=== PATIENT | male | born 1950 | race Caucasian/White ===

== ENCOUNTER → 2018-02-09 11:54 | Outpatient (CLI) | payer MEDICARE, OTHER, SELFPAY ==
--- NOTE | 2018-02-09 11:57 | DI.RAD.S_ITS ---
PROCEDURE: XR LUMBAR SPINE MIN 4V INDICATIONS: SCIATICA ASSOCIATED WITH DISORDER OF LUMBAR SPINE TECHNIQUE: 5 views of the lumbar spine were acquired. COMPARISON: None. FINDINGS: Bones: 5 nonrib-bearing vertebrae are present. There is normal bony alignment. No vertebral body compression fractures. No suspicious bony lesions. There is mild to moderate degenerative disc disease at L2-3 and L3-4, and L5-S1. No subluxation is associated. Facet osteoarthritis is most pronounced at L4-5 and especially L5-S1 where significant spinal or foraminal stenosis would be expected. Soft tissues: Overlying bowel gas pattern is normal. No suspicious soft tissue calcifications. Oblique images: No pars defects. IMPRESSION: No trauma found, no subluxation is present. Degenerative disc disease is most pronounced combining with facet osteoarthritis from L3 inferiorly and especially at L5-S1 where significant spinal or foraminal stenosis would be expected. Dictated by: Juarez Dempsey M.D. on 02/09/2018 at 12:32 Approved by: Juarez Dempsey M.D. on 02/09/2018 at 12:33
== END ==
PROVIDERS: PCP Family Medicine; Visit Provider Family Medicine
DX: M51.16 Intervertebral disc disorders with radiculopathy, lumbar region (principal); M47.26 Other spondylosis with radiculopathy, lumbar region; M53.86 Other specified dorsopathies, lumbar region
CPT/HCPCS: 72110

== ENCOUNTER → 2018-02-26 11:52 | Outpatient (CLI) | payer MEDICARE, OTHER, SELFPAY ==
[2018-02-26 13:01] LABS: Alanine Aminotransferase 25 IU/L (21-72); Albumin 4.2 g/dL (3.5-5.0); Albumin Globulin Ratio 1.4 (1.0-2.8); Alkaline Phosphatase 65 U/L (38-126); Aspartate Aminotransferase 23 IU/L (17-59); BUN Creatinine Ratio 31.1 (6-22); Bilirubin Total 0.6 mg/dL (0.2-1.3); Blood Urea Nitrogen 28 mg/dL (9-20); Calcium 9.9 mg/dL (8.4-10.2); Carbon Dioxide 27 mmol/L (22-32); Chloride 103 mmol/L (98-107); Estimated Glomerular Filt Rate > 60.0 mL/min (>60); Glucose 82 mg/dL (80-110); HEMOLYSIS < 15 (0-50); Potassium 4.9 mmol/L (3.4-5.1); Sodium 142 mmol/L (137-145); Total Protein 7.2 g/dL (6.3-8.2)
--- NOTE | 2018-02-26 13:12 | DI.CT.S_ITS ---
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 TECHNIQUE: After the administration of oral and intravenous contrast, 5 mm thick sections acquired from the diaphragms to the symphysis. 5 mm thick coronal and sagittal reformats were performed. For radiation dose reduction, the following was used: automated exposure control, adjustment of mA and/or kV according to patient size. COMPARISON: Outside Facility, , CT THORAX/ABDOMEN/PELVIS WITH CONTRAST, 01/19/2018, 10:28. FINDINGS: Image quality: Excellent. ABDOMEN: Lung bases: Lung bases are clear. Heart size is normal. Small hiatal hernia is again noted. Solid organs: Liver is normal in size. 1.8 cm lesion within the left hepatic dome demonstrates minimal peripheral contrast puddling, consistent with previously characterized benign hemangioma. Gallbladder wall thickness is normal. Biliary system is non-dilated. Pancreas enhances normally. Spleen is normal in size and enhancement. 1.3 cm posterior right adrenal exophytic nodule is unchanged. Kidneys are normal in size and enhancement, without hydronephrosis. Peritoneum and bowel: Stomach, small bowel, and colon loops are normal in caliber and wall thickness. The appendix appears normal. No free fluid or air. Nodes and vessels: No retroperitoneal or mesenteric adenopathy. Aorta and inferior vena cava are normal in caliber. Inferior right renal accessory artery is incidentally noted. Miscellaneous: No ventral hernias. PELVIS: Genitourinary: Bladder wall thickness is normal. Prostate gland is normal in overall size. Miscellaneous: No inguinal hernias or adenopathy. Bones: No suspicious bony lesions. No vertebral body compression fractures. IMPRESSION: 1. No new imaging findings to suggest rectal carcinoid recurrence or distant metastases. 2. Superior left hepatic lobe benign hemangioma again noted. 3. Small retrocardiac hiatal hernia. 4. 1.3 cm indeterminate posterior right adrenal exophytic nodule as before. If no remote outside institution chest or abdomen CTs are available to confirm one-year temporal stability, consider further characterization with adrenal protocol pre- and post contrast abdominal CT, or adrenal protocol noncontrast abdominal MRI. Dictated by: Jose R Holcomb M.D. on 02/26/2018 at 14:02 Approved by: Jose R Holcomb M.D. on 02/26/2018 at 14:34
[2018-02-26 13:21] LABS: Free T3, Triiodothyronine Free 3.77 pg/mL (2.77-5.27); Free T4, Direct Thyroxine 1.14 ng/dL (0.78-2.19)
[2018-02-26 13:34] LABS: Thyroid Stimulating Hormone 1.02 uIU/mL (0.47-4.68)
[2018-02-27 13:36] LABS: Rubeola Measles IgG < 25.00 AU/mL (< 25.00)
== END ==
PROVIDERS: PCP Family Medicine; Visit Provider Family Medicine
DX: C20 Malignant neoplasm of rectum (principal); D18.09 Hemangioma of other sites; K44.9 Diaphragmatic hernia without obstruction or gangrene; E27.8 Other specified disorders of adrenal gland
CPT/HCPCS: 36415; 74177; 80053; 84439; 84443; 84481; 86765; Q9967

== ENCOUNTER → 2018-06-01 16:00 | Outpatient (CLI) | payer MEDICARE, OTHER, SELFPAY ==
--- NOTE | 2018-06-01 16:02 | DI.US.S_ITS ---
PROCEDURE: US THYROID INDICATIONS: thyroid nodule TECHNIQUE: Real-time scanning was performed of the thyroid gland, with image documentation. COMPARISON: None. FINDINGS: Right: Thyroid lobe measures 5.7 x 1.6 x 2.0 cm, and is homogeneous in echotexture. Left: Thyroid lobe measures 7.1 x 1.7 x 2.3 cm, and is homogenous in echotexture. Isthmus: 4.0 mm thick. Nodule number: 1 Location: Right inferior Size: 0.7 0.7 0.9 cm. Composition: Solid Echogenicity: Hypoechoic Shape: wider than tall. Margins: Smooth Echogenic foci: None Total points: 4 ACR TI-RADS category: Moderately suspicious Nodule number: 2 Location: Left mid Size: 0.8 x 0.8 x 0.9 cm. Composition: Predominantly cystic Echogenicity: Hypoechoic Shape: wider than tall. Margins: Smooth Echogenic foci: None Total points: 2 ACR TI-RADS category: No suspicious Nodule number: 3 Location: Left inferior Size: 4.0 x 4.1 x 3.7 cm. Composition: Solid Echogenicity: Hypoechoic Shape: wider than tall. Margins: Smooth Echogenic foci: Macrocalcifications Total points: 5 ACR TI-RADS category: Moderately suspicious IMPRESSION: Moderately suspicious for 4.1 cm left thyroid nodule. Fine needle aspiration recommended. Continued followup of the additional 2 lung nodules as below. ACR TI-RADS definitions and recommendations: TI-RADS 1 (benign): 0 points. FNA not needed. TI-RADS 2 (not suspicious): 2 points. FNA not needed. TI-RADS 3 (mildly suspicious): 3 points. * FNA if 2.5 cm or larger, follow up if 1.5 cm or larger (at 1, 3, and 5 years). TI-RADS 4 (moderately suspicious): 4-6 points. * FNA if 1.5 cm or larger, follow up if 1 cm or larger (at 1, 2, 3, and 5 years). TI-RADS 5 (highly suspicious): 7 points or more. * FNA if 1 cm or larger, follow up if 0.5 cm or larger (every year for 5 years). Dictated by: Ross ZAMUDIO Interpreted: Juarez Dempsey MD on 06/01/2018 at 16:34 Approved by: Juarez Dempsey M.D. on 06/01/2018 at 16:54
== END ==
PROVIDERS: PCP Family Medicine; Visit Provider Family Medicine
DX: E04.2 Nontoxic multinodular goiter (principal)
CPT/HCPCS: 76536

== ENCOUNTER → 2018-06-22 15:27 | Outpatient (CLI) | payer MEDICARE, OTHER, SELFPAY | DX: Z23 Encounter for immunization (principal) | CPT/HCPCS: 90471; 90662 ==

== ENCOUNTER → 2019-05-26 12:14 | Outpatient (CLI) | payer MEDICARE, OTHER, SELFPAY | PROVIDERS: PCP Family Medicine | DX: Z23 Encounter for immunization (principal) | CPT/HCPCS: 90471; 90662 ==

== ENCOUNTER → 2019-06-01 09:01 | Outpatient (CLI) | payer MEDICARE, OTHER, SELFPAY ==
[2019-06-01 10:16] LABS: Blood Urea Nitrogen 19 mg/dL (9-20); Estimated Glomerular Filt Rate > 60.0 mL/min (>60)
--- NOTE | 2019-06-01 10:27 | DI.CT.S_ITS ---
PROCEDURE: CT ABDOMEN PELVIS W CON INDICATIONS: [address] scan TECHNIQUE: After the administration of oral and intravenous contrast, 5 mm thick sections acquired from the diaphragms to the symphysis. 5 mm thick coronal and sagittal reformats were performed. For radiation dose reduction, the following was used: automated exposure control, adjustment of mA and/or kV according to patient size. COMPARISON: [facility], CT, CT ABDOMEN PELVIS W CON, 02/26/2018, 13:14. FINDINGS: Image quality: Excellent. ABDOMEN: Lung bases: Lung bases are clear. Heart size is normal. Solid organs: 28 mm diameter peripherally enhancing low density focus within the lateral segment left hepatic lobe superiorly is present. Liver is otherwise normal in size and enhancement. Diffusely decreased hepatic density is present. Gallbladder is within normal limits. Biliary system is non-dilated. Pancreas enhances normally. Spleen is normal in size and enhancement. There is a 12 mm nodule involving the medial limb of the right adrenal, as before. No left adrenal nodules. Kidneys are normal in size and enhancement, without hydronephrosis. Peritoneum and bowel: A small hiatal hernia is present, as before. Stomach, small bowel, and colon loops are normal in caliber and wall thickness. No free fluid or air. Nodes and vessels: No retroperitoneal or mesenteric adenopathy. Aorta and inferior vena cava are normal in caliber. Miscellaneous: No ventral hernias. PELVIS: Genitourinary: Bladder wall thickness is normal. Prostate is enlarged. Miscellaneous: No inguinal hernias or adenopathy. Bones: No suspicious bony lesions. No vertebral body compression fractures. IMPRESSION: 1. No significant change compared to 02.26.18. 2. No evidence of metastatic disease. 3. No change in right adrenal nodule. 4. Small hiatal hernia. 5. Prostate enlargement; recommend correlation with PSA values. 6. Hepatic steatosis. Dictated by: Yamel Bell M.D. on 06/01/2019 at 10:35 Approved by: Yamel Bell M.D. on 06/01/2019 at 10:43
== END ==
PROVIDERS: PCP Family Medicine; Visit Provider Family Medicine
DX: D3A.026 Benign carcinoid tumor of the rectum (principal); E27.9 Disorder of adrenal gland, unspecified; K76.0 Fatty (change of) liver, not elsewhere classified; K44.9 Diaphragmatic hernia without obstruction or gangrene; N40.0 Benign prostatic hyperplasia without lower urinary tract symptoms
CPT/HCPCS: 36415; 74177; 82565; 84520; Q9967

== ENCOUNTER → 2019-06-29 07:02 | Outpatient (CLI) | payer MEDICARE, OTHER, SELFPAY ==
[2019-06-29 08:18] LABS: Alanine Aminotransferase 18 IU/L (21-72); Albumin 4.3 g/dL (3.5-5.0); Albumin Globulin Ratio 1.5 (1.0-2.8); Alkaline Phosphatase 63 U/L (38-126); Aspartate Aminotransferase 27 IU/L (17-59); Bilirubin Total 0.7 mg/dL (0.2-1.3); Blood Urea Nitrogen 20 mg/dL (9-20); Calcium 9.4 mg/dL (8.4-10.2); Carbon Dioxide 28 mmol/L (22-32); Chloride 104 mmol/L (98-107); Estimated Glomerular Filt Rate > 60.0 mL/min (>60); Globulin 2.8 g/dL (1.7-4.1); Glucose 116 mg/dL (80-110); HEMOLYSIS < 15 (0-50); Potassium 4.3 mmol/L (3.4-5.1); Sodium 139 mmol/L (137-145); Total Protein 7.1 g/dL (6.3-8.2)
[2019-06-29 08:31] LABS: Creatinine Urine Random 189.2 mg/dL
[2019-06-29 08:37] LABS: Microalbumi Creatinin Ratio Ur 6.8 ug/mg CR (<30); Microalbumin Urine Random 1.3 mg/dL (0-1.6)
[2019-06-29 08:48] LABS: Prostate Specific Antigen Scrn 5.18 ng/mL (0.1-4.0)
[2019-06-29 15:35] LABS: Add Manual Diff / Slide Review NO; Basophils Absolute Auto 0 /uL (0-100); Basophils Percent Auto 0.7 % (0-2); Eosinophils Absolute Auto 200 /uL (0-450); Eosinophils Percent Auto 4.1 % (2-4); Hematocrit 44.1 % (41-53); Hemoglobin 14.7 g/dL (13.5-17.5); Lymphocytes Absolute Auto 1700 /uL (1100-4500); Lymphocytes Percent Auto 28.2 % (25-40); Mean Corpuscular HGB Conc 33.3 % (30-36); Mean Corpuscular Hemoglobin 30.9 PG (26-34); Mean Corpuscular Volume 92.9 fL (80-100); Monocytes Absolute Auto 400 /uL (0-900); Neutrophils Absolute Auto 3600 /uL (1500-7000); Platelet Count 212 X10^3/uL (150-400); Red Blood Cell Count 4.75 X10^6/uL (4.5-5.9); Red Cell Distribution Width 13.6 % (11.6-14.8)
[2019-06-29 15:36] LABS: Thyroid Stimulating Hormone 0.88 uIU/mL (0.47-4.68)
== END ==
PROVIDERS: PCP Family Medicine; Visit Provider Family Medicine
DX: Z00.00 Encounter for general adult medical examination without abnormal findings (principal); Z12.5 Encounter for screening for malignant neoplasm of prostate; Z86.012 Personal history of benign carcinoid tumor; Z86.39 Personal history of other endocrine, nutritional and metabolic disease; Z13.1 Encounter for screening for diabetes mellitus; Z13.220 Encounter for screening for lipoid disorders
CPT/HCPCS: 36415; 80053; 82043; 82570; 84443; 85025; G0103

== ENCOUNTER → 2019-07-13 07:06 | Outpatient (CLI) | payer MEDICARE, OTHER, SELFPAY ==
[2019-07-13 08:00] LABS: Cholesterol 200 mg/dL (140-199); HDL Cholesterol 37 mg/dL (40-60); LDL Cholesterol Calculated 130 mg/dL (<100); Triglycerides 167 mg/dL (35-150)
== END ==
PROVIDERS: PCP Family Medicine; Visit Provider Family Medicine
DX: Z13.220 Encounter for screening for lipoid disorders (principal); Z13.6 Encounter for screening for cardiovascular disorders
CPT/HCPCS: 36415; 80061

== ENCOUNTER → 2020-01-19 13:21 | Outpatient (CLI) | payer MEDICARE, OTHER, SELFPAY ==
[2020-01-19 16:07] LABS: Prostate Specific Antigen 3.32 ng/mL (0.10-4.00)
== END ==
PROVIDERS: Referring Provider Urology; Visit Provider Urology
DX: R97.20 Elevated prostate specific antigen [PSA] (principal)
CPT/HCPCS: 36415; 84153

== ENCOUNTER → 2020-06-19 01:49 | Outpatient (CLI) | payer MEDICARE, OTHER, SELFPAY | PROVIDERS: Referring Provider Internal Medicine; Visit Provider Internal Medicine | DX: Z23 Encounter for immunization (principal) | CPT/HCPCS: 90471; 90662 ==

== ENCOUNTER → 2020-10-08 09:19 | Outpatient (CLI) | payer MEDICARE, OTHER, SELFPAY ==
[2020-10-08 11:32] LABS: COVID19 -Nasal RAPID Negative (Negative)
== END ==
PROVIDERS: Visit Provider Nurse Practitioner
DX: Z01.812 Encounter for preprocedural laboratory examination (principal); Z20.822 Contact with and (suspected) exposure to COVID-19
CPT/HCPCS: 87635; C9803

== ENCOUNTER 2020-10-10 11:57 | Day surgery (SDC) | payer MEDICARE, OTHER, SELFPAY ==
--- NOTE | 2020-10-10 | PATH_ITS ---
[facility] Accession Number: [id number] . 01 Material submitted: . colon - TRANSVERSE COLON POLYP . 01 Clinical history: . SDC . 02 Diagnosis: Transverse Colon, Polyp, Biopsy: Tubular adenoma. MRV 10/15/2020 1110 Local . 02 Electronically signed: . Gretchen Verdugo MD, Pathologist NPI- [id number] . 01 Gross description: . The specimen is received in formalin, labeled transverse colon polyp and consists of a 0.4 x 0.3 x 0.2 cm cartwright fragment of soft tissue, which is entirely submitted in cassette A1. ([id number]) /[facility] 10/11/2020 1712 Local . 02 Pathologist provided ICD-10: D12.3 . 02 CPT . 378917 Performed at: 01 [facility] [address] [id number] MD Sterling Ballard MD Phone: [phone] Performed at: 02 [facility] [address] [place], [place] [id number] MD Gretchen Verdugo MD Phone: [phone]
[2020-10-10 12:25] VITALS: BP 136/82; PULSE 90; RESP 16; TEMP 36.3; O2SAT 99; BMI 23.6
[2020-10-10] MEDS: SODIUM CHLORIDE 0.9% 1,000 ML 70 ML IV (12:48)
--- NOTE | 2020-10-10 12:59 | PM.HP.1 ---
History of Present Illness History of Present Illness Date Patient Seen: 10/10/20 Time Patient Seen: 12:55 Chief complaint: SDC Narrative: Patient is a pleasant 69-year-old male who presented for colonoscopy. He was last evaluated on September 14, 2020 for rectal bleeding with a history of rectal carcinoid tumor. He has undergone a resection with a charles-charles anastomosis over 3 years ago. He has not had repeat colonoscopy since that time. Patient History Medical History Basal cell carcinoma (Unknown) Bright red blood per rectum Constipation Elevated PSA, less than 10 ng/ml Low HDL (under 40) Surgical History (Updated 09/05/20 @ 13:52 by Santosh Bennett DO) Hx of tonsillectomy (Unknown) Status post colon resection Family & Social History Social History: household members spouse Tobacco & Substance use: Tobacco type cigarettes Smoking Status Former smoker alcohol intake current alcohol intake frequency 0-2 drinks per day Substance Use Type does not use Meds Home Medications and Allergies Allergies Allergy/AdvReac Type Severity Reaction Status Date / Time No Known Drug Allergies Allergy Verified 10/10/20 12:24 Review of Systems Review of Systems ROS: Yes All systems reviewed with the patient and are negative except as otherwise documented Exam Vital Signs (past 8 hours): - 10/10/20 12:25 Temperature 97.3 F L Pulse Rate 90 Respiratory Rate 16 Blood Pressure 136/82 Pulse Oximetry 99 Oxygen Delivery Method Room Air Const General: cooperative, healthy appearing, comfortable and well developed Nutritional Appearance: average body habitus Orientation: alert, awake and oriented x3 HENMT Head: normocephalic and atraumatic Resp Effort & Inspection: normal respiratory effort, able to speak in complete sentences and abnormal respiratory pattern Auscultation: clear to auscultation bilaterally Cardio Rate: regular rate Rhythm: regular rhythm Heart Sounds: S1 normal and S2 normal GI Palpation: soft Auscultation: normal bowel sounds Extrem Right lower extremity: no edema Left lower extremity: no edema Assessment & Plan Assessment & Plan narrative: 1. History of carcinoid tumor in the rectum 2. Rectal bleeding Colonoscopy today, further recommendations to follow
[2020-10-10] MEDS: fentaNYL 250 MCG/5 ML INJ IV (13:24)
[2020-10-10] MEDS: MIDAZOLAM 5 MG/5 ML VIAL IV (13:24)
[2020-10-10 13:26] VITALS: BP 115/72; PULSE 78; RESP 12; TEMP 36.6; O2SAT 96
--- NOTE | 2020-10-10 13:26 | PM.OP.ENDO ---
Operative Date/Time/Diagnoses Date of procedure: 10/10/20 Time of procedure: 12:25 Procedure Notes Procedure in detail: Surgeon: Shannon Wilkerson DO Procedure: Colonoscopy with polypectomy Preoperative diagnosis: 1. History of rectal carcinoid status post resection Postoperative diagnosis: 1. 6 mm transverse colon polyp 2. Scattered diverticulosis in the sigmoid colon 3. Scar in the rectum consistent with resection of rectal carcinoid, no regrowth Medications: Conscious sedation using 4 mg IV of Midazolam and 100 mcg IV of Fentanyl Preanesthesia Assessment An H and P was performed/updated and the Px?s ASA class is 2. The procedure was discussed in detail with the patient. The potential risks and complications including infection, bleeding, missed lesions, perforation, need for surgery in case of perforation, prolonged hospital stay, and were explained. A brief question and answer period was allotted and once all questions were answered, informed consent was obtained. The patient was brought back to the procedure room and placed on standard monitoring. The patient?s vital signs were monitored continuously throughout the entire procedure. Prior to starting, a timeout was performed to confirm the patient?s identity, allergies, medications, and procedure. Procedure in detail The patient was placed in left lateral decubitus position and once adequate sedation was obtained a VANNESSA was performed. The digital rectal examination did not reveal any palpable lesions. The tip of the colonoscope was placed in the anal canal and advanced without difficulty all the way to the cecum which was identified by the appendiceal orifice and the ileocecal valve. Careful examination of all avila of the colon was performed with irrigation of any residual stool. Terminal ileum was unremarkable. 6 mm polyp noted in the transverse colon, removed with cold snare. Scattered diverticulosis noted in the sigmoid colon. This mucosa in the rectum showed scarring consistent with a likely transanal resection of rectal carcinoid The patient tolerated the procedure well and will be brought back to the recovery area to be discharged once criteria are met. The prep was judged to be good/excellent and adequate to identify polyps less than 5 mm. The withdrawal time was 9min. The total physician intraservice time was 16min. Complications There were no complications and estimated blood loss was minimal. Recommendations: Resume previous diet Continue outPx medications Follow up pathology results Repeat colonoscopy will be determined after pathology results are reviewed An emergency contact number was given to the patient for any complications related to the procedure
[2020-10-10 13:31] VITALS: BP 96/66; PULSE 96; RESP 16; O2SAT 97
[2020-10-10 13:36] VITALS: BP 113/82; PULSE 97; RESP 12; O2SAT 96
[2020-10-10 13:41] VITALS: BP 114/79; PULSE 87; RESP 14; TEMP 36.9; O2SAT 96
[2020-10-10 13:42] VITALS: BP 113/84; PULSE 86; RESP 14; TEMP 36.9; O2SAT 97
== END 2020-10-10 13:50 | disposition home or self-care (01) ==
PROVIDERS: PCP Family Medicine; Referring Provider Student in an Organized Health Care Education/Training Program; Visit Provider Student in an Organized Health Care Education/Training Program
PROC: 0DJD8ZZ Inspection of Lower Intestinal Tract, Via Natural or Artificial Opening Endoscopic (ICD-10-PCS; CPT 45378; principal; 2020-10-10 13:00)
DX: Z12.11 Encounter for screening for malignant neoplasm of colon (principal); Z85.040 Personal history of malignant carcinoid tumor of rectum; K57.30 Diverticulosis of large intestine without perforation or abscess without bleeding; D12.3 Benign neoplasm of transverse colon
CPT/HCPCS: 45385; J2250; J3010

== ENCOUNTER → 2022-06-18 13:35 | Outpatient (CLI) | payer MEDICARE, OTHER, SELFPAY ==
[2022-06-18 14:24] LABS: Add Manual Diff / Slide Review NO; Basophils Absolute Auto 0 /uL (0-100); Basophils Percent Auto 0.5 % (0-2); Eosinophils Absolute Auto 200 /uL (0-450); Eosinophils Percent Auto 2.5 % (2-4); Hematocrit 44.6 % (41-53); Hemoglobin 14.7 g/dL (13.5-17.5); Lymphocytes Absolute Auto 1800 /uL (1100-4500); Lymphocytes Percent Auto 28.5 % (25-40); Mean Corpuscular HGB Conc 33.1 % (30-36); Mean Corpuscular Hemoglobin 30.1 PG (26-34); Monocytes Absolute Auto 500 /uL (0-900); Monocytes Percent Auto 8.8 % (3-14); Neutrophils Absolute Auto 3700 /uL (1500-7000); Neutrophils Percent Auto 59.7 % (50-75); Platelet Count 263 X10^3/uL (150-400); Red Cell Distribution Width 13.5 % (11.6-14.8); White Blood Cell Count 6.2 X10^3/uL (4.5-11.0)
[2022-06-18 14:30] LABS: Hemoglobin A1C% w Est Avg Glu 5.8 % (4.0-6.0)
[2022-06-18 14:45] LABS: Alanine Aminotransferase 11 IU/L (<50); Albumin 4.1 g/dL (3.5-5.0); Albumin Globulin Ratio 1.1 (1.0-2.8); Alkaline Phosphatase 65 U/L (38-126); Aspartate Aminotransferase 21 IU/L (17-59); BUN Creatinine Ratio 16.3 (6-22); Bilirubin Total 0.5 mg/dL (0.2-1.3); Blood Urea Nitrogen 15 mg/dL (9-20); Calcium 9.4 mg/dL (8.4-10.2); Carbon Dioxide 24 mmol/L (22-32); Chloride 103 mmol/L (98-107); Cholesterol 187 mg/dL (140-199); Estimated Glomerular Filt Rate > 60 mL/min (>60); Globulin 3.6 g/dL (1.7-4.1); Glucose 101 mg/dL (80-110); HDL Cholesterol 38 mg/dL (40-60); HEMOLYSIS < 15 (0-50); LDL Cholesterol Calculated 93 mg/dL (<100); Potassium 4.2 mmol/L (3.4-5.1); Sodium 140 mmol/L (137-145); Total Protein 7.7 g/dL (6.3-8.2); Triglycerides 280 mg/dL (35-150)
[2022-06-18 15:11] LABS: Prostate Specific Antigen Scrn 4.31 ng/mL (0.1-4.0)
[2022-06-18 15:12] LABS: TSH w/ Reflex to FT4 1.15 uIU/mL (0.47-4.68)
== END ==
PROVIDERS: PCP Family Medicine; Referring Provider Family Medicine; Visit Provider Family Medicine
DX: K59.00 Constipation, unspecified (principal); Z12.5 Encounter for screening for malignant neoplasm of prostate; R53.83 Other fatigue; R06.09 Other forms of dyspnea
CPT/HCPCS: 36415; 80053; 80061; 83036; 84443; 85025; G0103

== ENCOUNTER → 2023-04-24 08:11 | Outpatient (CLI) | payer MEDICARE, OTHER, SELFPAY ==
--- NOTE | 2023-04-24 08:13 | DI.RAD.S_ITS ---
PROCEDURE: XR SHOULDER RT MIN 2V INDICATIONS: Rt shoulder pain after fall TECHNIQUE: 2 views of the shoulder were acquired. COMPARISON: None. FINDINGS: Bones: No fractures or dislocations. No suspicious bony lesions. Visualized ribs appear intact. Moderate to severe acromioclavicular and moderate glenohumeral arthritic change. Soft tissues: No suspicious soft tissue calcifications. IMPRESSION: No visualized acute fracture or dislocation. However, if clinical concern and/or pain persist, short interval imaging followup in 7-10 days is recommended, as occult injury cannot be definitively excluded. Dictated by: Tiffany Juarez M.D. on 04/24/2023 at 19:34 Approved by: Tiffany Juarez M.D. on 04/24/2023 at 19:34
== END ==
PROVIDERS: PCP Family Medicine; Referring Provider Physician Assistant; Visit Provider Physician Assistant
DX: M25.511 Pain in right shoulder (principal)
CPT/HCPCS: 73030

== ENCOUNTER → 2023-05-07 07:49 | Outpatient (CLI) | payer MEDICARE, OTHER, SELFPAY ==
--- NOTE | 2023-05-07 07:51 | DI.RAD.S_ITS ---
PROCEDURE: XR LUMBAR SPINE MIN 4V INDICATIONS: low back pain TECHNIQUE: 5 views of the lumbar spine acquired, including flexion and extension views. COMPARISON: [facility], CR, XR LUMBAR SPINE MIN 4V, 02/09/2018, 11:59. FINDINGS: Bones: 5 nonrib-bearing vertebrae are present. There is normal bony alignment. No vertebral body compression fractures. No suspicious bony lesions. Diffuse disc space narrowing hypertrophic facet joints present with anterior osteophytes. No evidence of malalignment. Oblique images unremarkable Soft tissues: Overlying bowel gas pattern is normal. No suspicious soft tissue calcifications. IMPRESSION: Generalized degenerative disc disease and arthropathy Approved by: Darrian Maher M.D. on 05/07/2023 at 13:34
== END ==
PROVIDERS: PCP Family Medicine; Referring Provider Anesthesiology; Visit Provider Anesthesiology
DX: M51.16 Intervertebral disc disorders with radiculopathy, lumbar region (principal); M47.26 Other spondylosis with radiculopathy, lumbar region; G89.29 Other chronic pain
CPT/HCPCS: 72110

== ENCOUNTER → 2023-05-18 07:13 | Outpatient (CLI) | payer MEDICARE, OTHER, SELFPAY ==
--- NOTE | 2023-05-18 07:40 | DI.MRI.S_ITS ---
PROCEDURE: MR LUMBAR SPINE WO CON INDICATIONS: Lumbar radiculopathy TECHNIQUE: Noncontrast sagittal T1 spin echo and T2 fast echo, sagittal STIR, and T2 fast spin echo through the lumbar spine. In cases with scoliosis, additional coronal T2 fast spin echo may be performed. COMPARISON: [facility], CR, XR LUMBAR SPINE MIN 4V, 05/07/2023, 8:01. FINDINGS: Image quality: Excellent. Alignment and Curvature: There is trace retrolisthesis of L1 on L2, L2 on L3, L3 on L4, L5 on S1 as well as trace anterolisthesis of L4 on L5. Bone Marrow: Marrow is of normal overall signal. Minimal reactive endplate changes are present at L2-3. No acute vertebral body compression fractures. Spinal Cord: Conus medullaris terminates at the L1 level. Visualized cord demonstrates normal signal and size. Tarlov cyst is present at S2. Paraspinous Soft Tissues: No paravertebral masses. Discs: Multilevel moderate to severe disc desiccation is present most prominent at L2-3, L3-4 and L5-S1. T12-L1: No disc bulge, spinal stenosis or foraminal narrowing. L1-L2: Mild disc bulge without spinal stenosis. Moderate to severe left and moderate right foraminal narrowing with facet and ligamentum flavum hypertrophy. L2-L3: Mild disc bulge with mild spinal stenosis. Moderate to severe bilateral foraminal narrowing with facet and ligamentum flavum hypertrophy. L3-L4: Mild disc bulge with cgvo-zd-unyvyrqm spinal stenosis. Moderate to severe left and moderate right foraminal narrowing with facet and ligamentum flavum hypertrophy. L4-L5: Mild disc bulge with severe spinal stenosis and canal compression. Moderate to severe bilateral foraminal narrowing with facet and ligamentum flavum hypertrophy. L5-S1: Mild disc bulge with [id number]-rr-pyvemjcp spinal stenosis. Severe left and moderate to severe right foraminal narrowing with facet and ligamentum flavum hypertrophy. Mild compression of the exiting L5 nerve roots. IMPRESSION: Multilevel spinal stenosis most severe at L4-5 with canal compression secondary to disc bulge with contributing effect of facet/ligamentum flavum arthropathy. Multilevel foraminal narrowing most severe at L5-S1 with compression of the exiting left L5 nerve root secondary to facet arthropathy. Dictated by: Tiffany Juarez M.D. on 05/18/2023 at 17:14 Approved by: Tiffany Juarez M.D. on 05/18/2023 at 17:18
== END ==
PROVIDERS: PCP Family Medicine; Referring Provider Anesthesiology; Visit Provider Anesthesiology
DX: M47.26 Other spondylosis with radiculopathy, lumbar region (principal); M48.061 Spinal stenosis, lumbar region without neurogenic claudication; M47.27 Other spondylosis with radiculopathy, lumbosacral region; M51.16 Intervertebral disc disorders with radiculopathy, lumbar region; M48.07 Spinal stenosis, lumbosacral region
CPT/HCPCS: 72148

== ENCOUNTER 2023-06-03 07:34 | Outpatient (CLI) | payer MEDICARE, OTHER, SELFPAY ==
[2023-06-03] VITALS (9 sets, daily range): BP systolic 114–142; BP diastolic 72–95; PULSE 72–84; RESP 12–20; TEMP 36.1; O2SAT 96–100
--- NOTE | 2023-06-03 07:37 | DI.RAD.S_ITS ---
PROCEDURE: PAIN L INTERLAMINAR/CAUDAL INJ INDICATIONS: SPONDYLOSIS COMPARISON: [facility], CR, XR LUMBAR SPINE MIN 4V, 05/07/2023, 8:01. [facility], MR, MR LUMBAR SPINE WO CON, 05/18/2023, 7:21. FINDINGS: Fluoroscopic spot filming was performed to verify placement of a spinal needle at the L4-L5 level, as labeled on the films. Appropriate location of the needle tip was confirmed by injection of iodinated contrast. IMPRESSION: Intraprocedural examination within normal limits. Dictated by: Natanael Lovelace M.D. on 06/03/2023 at 10:45 Approved by: Natanael Lovelace M.D. on 06/03/2023 at 10:46
[2023-06-03] MEDS: MIDAZOLAM 2 MG/2 ML VIAL 1 MG IV ×2 (08:03→08:08)
[2023-06-03] MEDS: iopamidoL 15 ML VIAL 3 ML INJ (08:07)
[2023-06-03] MEDS: DEXAMETHASONE 10 MG/ML VIAL INJ (08:07)
--- NOTE | 2023-06-03 08:54 | P.PCN_ITS ---
Date/Time/Diagnoses Date of procedure: 06/03/23 Time of procedure: 08:00 Procedure Notes Physician: Raul Amaral Total Fluoroscopy time (seconds): 17 Total sedation minutes: 12 Procedure in detail & Post-procedure care: L4-5 Interlaminar Epidural Steroid Injection Indications: Delmer is presenting for treatment of lumbar radiculopathy with low back and leg pain. Preoperative diagnosis: Lumbar radiculopathy Postoperative diagnosis: Same Focused Examination: Ax3 Mood and affect are normal Vital Signs: VSS ASA: 2 Consent: Following review of allergies and potential side effects/complications, including, but not necessarily limited to, infection, allergic reaction, local tissue breakdown, stroke, temporary or permanent nerve injury, paralysis, and possible , the patient indicated that they understood and agreed to procee d.? An informed consent document was signed by the patient, witnessed by a nurse and placed in the patient's chart.? Additionally, other treatment options including medications and physical therapy were reviewed with the patient. All questions were answered. Site was then marked. Anesthesia: After review of previous anesthetic history and IV conscious sedation, the patient was deemed safe to proceed with today's procedure with IV conscious sedation. IV sedation was accomplished with midazolam 2 mg administered by the RN after order by Dr. Amaral. Sedation was titrated to patient comfort during the course of the procedure. Patient remained responsive to all verbal commands. Position: Prone Monitoring: NIBP, Pulse oximetry, 3 lead EKG Needle used: 18 G 3.5? Tuohy Contrast: Isovue 300M Injectate: Dexamethasone 10 mg with 1% lidocaine 2 mL Technique: The skin was prepped with chloraprep and then draped in a sterile fashion. Time out was performed as per protocol. Oxygen applied via NC. Skin and subcutaneous structures of the needle entry site was then infiltrated with 3 mL of lidocaine 1%. Under AP, lateral and contralateral oblique fluoroscopic control, the Tuohy needle was guided into the L4-5 epidural space. The space was accessed with loss of resistance technique. Isovue 300M was then injected and the spread was consistent with the epidural space. There was no evidence for intravascular or intrathecal uptake. After negative aspiration, the above- mentioned injectate was then slowly administered and the needle withdrawn. The patient expressed no unusual discomfort or paresthesias during the injection. Band-Aids applied to injection sites. EBL: less than 1 ml Complications: None Post Procedure: Patient was taken to the recovery and monitored. The patient was provided a Pain Log to continue to record the patient's response to the target- specific procedure prior to the patient's follow-up visit with the referring physician. Patient was stable upon discharge. Detailed post procedure instructions were provided. Patient was asked to call in the event of worsening pain, fever, weakness, numbness or bladder or bowel incontinence.
== END 2023-06-03 08:46 | disposition home or self-care (01) ==
LOC: RAD 07:36
PROVIDERS: PCP Family Medicine; Referring Provider Anesthesiology; Visit Provider Anesthesiology
DX: M54.16 Radiculopathy, lumbar region (principal)
CPT/HCPCS: 62323; 99152; J1100; J2250

== ENCOUNTER → 2023-06-19 09:19 | Outpatient (CLI) | payer MEDICARE, OTHER, SELFPAY ==
[2023-06-19 10:21] LABS: Add Manual Diff / Slide Review NO; Basophils Absolute Auto 0 /uL (0-100); Basophils Percent Auto 0.6 % (0-2); Eosinophils Absolute Auto 300 /uL (0-450); Eosinophils Percent Auto 5.4 % (2-4); Hematocrit 45.4 % (41-53); Hemoglobin 15.5 g/dL (13.5-17.5); Lymphocytes Absolute Auto 1900 /uL (1100-4500); Lymphocytes Percent Auto 30.2 % (25-40); Mean Corpuscular Hemoglobin 31.7 PG (26-34); Mean Corpuscular Volume 93.2 fL (80-100); Monocytes Absolute Auto 500 /uL (0-900); Monocytes Percent Auto 7.3 % (3-14); Neutrophils Absolute Auto 3600 /uL (1500-7000); Neutrophils Percent Auto 56.5 % (50-75); Platelet Count 230 X10^3/uL (150-400); Red Blood Cell Count 4.87 X10^6/uL (4.5-5.9); Red Cell Distribution Width 12.8 % (11.6-14.8); White Blood Cell Count 6.4 X10^3/uL (4.5-11.0)
[2023-06-19 10:52] LABS: Alanine Aminotransferase 12 IU/L (<50); Albumin 4.3 g/dL (3.5-5.0); Albumin Globulin Ratio 1.3 (1.0-2.8); Alkaline Phosphatase 66 U/L (38-126); Aspartate Aminotransferase 24 IU/L (17-59); BUN Creatinine Ratio 19.8 (6-22); Bilirubin Total 0.4 mg/dL (0.2-1.3); Blood Urea Nitrogen 19 mg/dL (9-20); Calcium 9.9 mg/dL (8.4-10.2); Carbon Dioxide 28 mmol/L (22-32); Chloride 103 mmol/L (98-107); Cholesterol 187 mg/dL (140-199); Estimated Glomerular Filt Rate > 60 mL/min (>60); Globulin 3.2 g/dL (1.7-4.1); Glucose 110 mg/dL (80-110); HDL Cholesterol 46 mg/dL (40-60); HEMOLYSIS < 15 (0-50); LDL Cholesterol Calculated 104 mg/dL (<100); Potassium 4.6 mmol/L (3.4-5.1); Sodium 137 mmol/L (137-145); Total Protein 7.5 g/dL (6.3-8.2); Triglycerides 183 mg/dL (35-150)
[2023-06-19 11:17] LABS: Prostate Specific Antigen Scrn 5.11 ng/mL (0.1-4.0)
== END ==
PROVIDERS: PCP Family Medicine; Referring Provider Family Medicine; Visit Provider Family Medicine
DX: E78.6 Lipoprotein deficiency (principal); Z12.5 Encounter for screening for malignant neoplasm of prostate; R97.20 Elevated prostate specific antigen [PSA]
CPT/HCPCS: 36415; 80053; 80061; 85025; G0103

== ENCOUNTER → 2023-07-17 18:38 | Outpatient (CLI) | payer MEDICARE, OTHER, SELFPAY ==
--- NOTE | 2023-07-17 18:39 | DI.MRI.S_ITS ---
PROCEDURE: MR PELVIC PROSTATE PROTOCOL INDICATIONS: Elevated PSA TECHNIQUE: Coronal HASTE, axial T1 FSE with fat saturation, 3-plane nonbreath-hold T2 FSE. After the administration of contrast, dynamic axial, delayed axial and coronal VIBE or 2-D FLASH with fat saturation through the pelvis. Diffusion weighted imaging and ADC was performed. COMPARISON: [facility], CT, CT ABDOMEN PELVIS W CON, 06/01/2019, 10:23. FINDINGS: Image quality: Diffusion weighted and dynamic contrast enhanced images are diagnostic. Prostate: Gland size is 5.9 x 4.4 x 4.3 cm; ellipsoid gland volume is 58 mL. No significant foci of intrinsic T1 hyperintensity to suggest hemorrhage. Multiple BPH nodules. Lesion 1: Location: Left apex transitional zone, on axial series 5, image 15 and coronal series 7, image 16. Size: 0.6 x 0.6 cm. T2W signal: Heterogeneous. DWI signal: Mildly hyperintense. ADC signal: Mildly hypointense. Enhancement: Yes Extracapsular extension: No. No neurovascular involvement. PI-RADS score: 3 Genitourinary system: Bladder wall thickness is normal. Distal ureters are non distended. Bowel and peritoneum: No pathologic free pelvic fluid. Inferior colon and small bowel loops are normal in caliber. Nodes and vessels: No pelvic or inguinal adenopathy by size criteria. A few small pelvic lymph nodes are unchanged since 2019. For example right external iliac node with a short axis diameter 0.7 cm, (5/7), previously 0.7 cm in 2019. Iliac vessels are normal in caliber. Soft tissues: No inguinal hernias. Bones: Marrow demonstrates normal overall signal, without lesions to suggest metastases. Sacral Tarlov cysts. IMPRESSION: 1. Prostatomegaly with multiple BPH nodules. 2. Left apex transitional zone observation measuring 0.6 cm. PI-RADS 3. 3. No enlarged lymph nodes. Dictated by: Cristhian Lucas M.D. on 07/20/2023 at 8:22 Approved by: Cristhian Lucas M.D. on 07/20/2023 at 8:37
== END ==
PROVIDERS: PCP Family Medicine; Referring Provider Urology; Visit Provider Urology
DX: N40.2 Nodular prostate without lower urinary tract symptoms (principal); R97.20 Elevated prostate specific antigen [PSA]
CPT/HCPCS: 72197; A9579

== ENCOUNTER → 2023-12-30 11:30 | Outpatient (CLI) | payer MEDICARE, OTHER, SELFPAY ==
[2024-01-01 14:29] LABS: PSA Free % 16.2 % (.); PSA, Total 4.5 ng/mL (0.0-4.0)
== END ==
PROVIDERS: PCP Family Medicine; Referring Provider Urology; Visit Provider Urology
DX: R97.20 Elevated prostate specific antigen [PSA] (principal)
CPT/HCPCS: 36415; 84153; 84154

== ENCOUNTER → 2024-05-24 16:56 | Outpatient (CLI) | payer MEDICARE, OTHER, SELFPAY ==
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
== END ==
PROVIDERS: PCP Family Medicine; Referring Provider Physician Assistant; Visit Provider Physician Assistant
DX: S76.011A Strain of muscle, fascia and tendon of right hip, initial encounter (principal); X58.XXXA Exposure to other specified factors, initial encounter
CPT/HCPCS: 73502

== ENCOUNTER → 2024-07-06 07:10 | Outpatient (CLI) | payer MEDICARE, OTHER, SELFPAY ==
[2024-07-06 09:10] LABS: Add Manual Diff / Slide Review NO; Basophils Absolute Auto 0 /uL (0-100); Basophils Percent Auto 0.6 % (0-2); Eosinophils Absolute Auto 300 /uL (0-450); Eosinophils Percent Auto 5.2 % (2-4); Hematocrit 46.2 % (41-53); Hemoglobin 15.4 g/dL (13.5-17.5); Lymphocytes Absolute Auto 1900 /uL (1100-4500); Mean Corpuscular HGB Conc 33.3 % (30-36); Monocytes Absolute Auto 400 /uL (0-900); Monocytes Percent Auto 7.4 % (3-14); Neutrophils Absolute Auto 3300 /uL (1500-7000); Neutrophils Percent Auto 54.8 % (50-75); Platelet Count 243 X10^3/uL (150-400); Red Blood Cell Count 4.97 X10^6/uL (4.5-5.9); Red Cell Distribution Width 12.8 % (11.6-14.8)
[2024-07-06 09:25] LABS: Alanine Aminotransferase 12 IU/L (<50); Albumin 4.1 g/dL (3.5-5.0); Albumin Globulin Ratio 1.5 (1.0-2.8); Alkaline Phosphatase 80 U/L (38-126); Aspartate Aminotransferase 25 IU/L (17-59); BUN Creatinine Ratio 18.4 (6-22); Bilirubin Total 0.6 mg/dL (0.2-1.3); Blood Urea Nitrogen 18 mg/dL (9-20); Calcium 9.7 mg/dL (8.4-10.2); Carbon Dioxide 26 mmol/L (22-32); Chloride 106 mmol/L (98-107); Cholesterol 206 mg/dL (140-199); Estimated Glomerular Filt Rate > 60 mL/min (>60); Globulin 2.8 g/dL (1.7-4.1); Glucose 131 mg/dL (80-110); HDL Cholesterol 43 mg/dL (40-60); HEMOLYSIS < 15 (0-50); LDL Cholesterol Calculated 117 mg/dL (<100); Potassium 4.9 mmol/L (3.4-5.1); Sodium 137 mmol/L (137-145); Total Protein 6.9 g/dL (6.3-8.2); Triglycerides 232 mg/dL (35-150)
== END ==
PROVIDERS: PCP Family Medicine; Referring Provider Family Medicine; Visit Provider Family Medicine
DX: E78.6 Lipoprotein deficiency (principal); Z90.49 Acquired absence of other specified parts of digestive tract
CPT/HCPCS: 36415; 80053; 80061; 85025

== ENCOUNTER → 2024-07-12 06:46 | Outpatient (CLI) | payer MEDICARE, OTHER, SELFPAY ==
[2024-07-12 10:39] LABS: Hemoglobin A1C% w Est Avg Glu 6.4 % (4.0-6.0)
[2024-07-13 08:11] LABS: PSA Free % 17.5 % (.)
== END ==
PROVIDERS: PCP Family Medicine; Referring Provider Urology; Visit Provider Urology
DX: R73.01 Impaired fasting glucose (principal); R97.20 Elevated prostate specific antigen [PSA]
CPT/HCPCS: 36415; 83036; 84153; 84154

== ENCOUNTER → 2024-08-17 10:31 | Outpatient (CLI) | payer MEDICARE, OTHER, SELFPAY ==
--- NOTE | 2024-08-17 10:34 | DI.RAD.S_ITS ---
PROCEDURE: XR DEXA AXIAL SKELETON INDICATIONS: Spinal Stenosis COMPARISON: None. FINDINGS: Lumbar Spine: Bone mineral density 1.246 g/cm2, T score 1.8, normal. Left Hip: Bone mineral density 0.967 g/cm2, T score 0.2, normal. Left Femoral Neck: Bone mineral density 0.719 g/cm2, T score -1.2, osteopenia. Right Hip: Bone mineral density 0.898 g/cm2, T score -0.4, at the lower limits of normal. Right Femoral Neck: Bone mineral density 0.692 g/cm2, T score -1.4, osteopenia. Fracture Risk Calculation (when applicable): 10-year fracture risk of a major osteoporotic fracture 6.4-7 percent and of a hip fracture 1.6-1.8 percent. (T score greater or equal to -1.0 to: NORMAL) (T score from -1.1 to -2.4: OSTEOPENIA) (T score less than or equal to -2.5: OSTEOPOROSIS) IMPRESSION: Osteopenia of the femoral necks with normal bone mineral density of the lumbar spine. Follow-up guidelines as follows: Osteoporosis: Consider a repeat DEXA and Vertebral Fracture Assessment (VFA) exam in 2 years or sooner if medically necessary, to reassess this patient's status. Osteopenia: Consider a repeat DEXA in 2-3 years to reassess this patient's status, or if there is a new clinical indication. Normal: Consider a repeat DEXA in 5 years or sooner, or if there is a new clinical indication. All treatment decisions require clinical judgment and consideration of individual patient factors, including patient preferences, comorbidities, previous drug use, risk factors not captured in the FRAX model (e.g., frailty, falls, vitamin D deficiency, increased bone turnover, interval significant decline in bone density ) and possible under- or over-estimation of fracture risk by FRAX. In addition, the NOF Guide recommends that FDA-approved medical therapies be considered in postmenopausal women and men age >= 50 years with a: * Hip or vertebral (clinical or morphometric) fracture * T-score of <=-2.5 at the spine or hip * Ten-year fracture probability by FRAX of >= 3% for hip fracture or >=20% for major osteoporotic fracture. People with diagnosed cases of osteoporosis or at high risk for fracture should have regular bone mineral density tests. For patients eligible for Medicare, routine testing is allowed once every 2 years. The testing frequency can be increased to one year for patients who have rapidly progressing disease, those who are receiving or discontinuing medical therapy to restore bone mass, or have additional risk factors. Dictated by: Sterling Horowitz M.D. on 08/17/2024 at 13:18 Approved by: Sterling Horowitz M.D. on 08/17/2024 at 14:47
== END ==
LOC: RAD 10:32
PROVIDERS: PCP Family Medicine
DX: M85.89 Other specified disorders of bone density and structure, multiple sites (principal)
CPT/HCPCS: 77080

== ENCOUNTER → 2024-12-23 06:52 | Outpatient (CLI) | payer MEDICARE, OTHER, SELFPAY ==
[2024-12-24 07:09] LABS: PSA Free % 13.9 % (.); PSA, Total 6.7 ng/mL (0.0-4.0)
== END ==
LOC: LAB 06:53
PROVIDERS: PCP Family Medicine; Referring Provider Urology; Visit Provider Urology
DX: E11.9 Type 2 diabetes mellitus without complications (principal); R97.20 Elevated prostate specific antigen [PSA]
CPT/HCPCS: 36415; 83036; 84153; 84154

== ENCOUNTER → 2024-12-26 07:20 | Outpatient (CLI) | payer MEDICARE, OTHER, SELFPAY ==
--- NOTE | 2024-12-26 07:23 | DI.RAD.S_ITS ---
PROCEDURE: XR LUMBAR SPINE 2-3V INDICATIONS: Spinal stenosis, lumbar region with neurogenic claudication TECHNIQUE: 3 views of the lumbar spine were acquired. COMPARISON: [facility], , XR LUMBAR SPINE MIN 4V, 05/07/2023, 8:01. FINDINGS: Bones: 5 [id number] vertebrae are present. Degenerative retrolisthesis of L1 on L2, L2 on L3 and L3 on L4. Moderate spinal canal narrowing at all levels. L4 pars defects. No vertebral body compression fractures. No suspicious bony lesions. Posterior and interbody surgical fusion at L4-5. Soft tissues: Overlying bowel gas pattern is normal. No suspicious soft tissue calcifications. 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 Moderate, multilevel degenerative disc disease. Dictated by: Rakesh Frost M.D. on 12/26/2024 at 8:27 Approved by: Rakesh Frost M.D. on 12/26/2024 at 8:32
== END ==
PROVIDERS: PCP Family Medicine; Referring Provider Neurological Surgery; Visit Provider Neurological Surgery
DX: M48.062 Spinal stenosis, lumbar region with neurogenic claudication (principal); M51.369 Other intervertebral disc degeneration, lumbar region without mention of lumbar back pain or lower extremity pain; Z98.1 Arthrodesis status
CPT/HCPCS: 72100

== ENCOUNTER → 2025-03-01 07:46 | Outpatient (CLI) | payer MEDICARE, OTHER, SELFPAY ==
--- NOTE | 2025-03-01 07:50 | DI.RAD.S_ITS ---
PROCEDURE: XR LUMBAR SPINE 2-3V INDICATIONS: Spondylolisthesis, lumbar region TECHNIQUE: 3 views of the lumbar spine were acquired. COMPARISON: [facility], CT, CT ABDOMEN PELVIS W CON, 06/01/2019, 10:23. [facility], CR, XR LUMBAR SPINE 2-3V, 12/26/2024, 7:23. FINDINGS: Bones: 5 [id number] vertebrae are present. L4-L5 pedicle screw fixation with intervertebral body spacer. Multilevel loss of disc space height. Osteophytosis. Facet joint hypertrophy. No vertebral body compression fractures. No suspicious bony lesions. Soft tissues: Overlying bowel gas pattern is normal. No suspicious soft tissue calcifications. IMPRESSION: No significant interval change. Stable L4-L5 pedicle screw fixation. Dictated by: Cristhian Lucas M.D. on 03/01/2025 at 13:30 Approved by: Cristhian Lucas M.D. on 03/01/2025 at 13:33
== END ==
LOC: RAD 07:49
PROVIDERS: PCP Family Medicine; Referring Provider Neurological Surgery; Visit Provider Neurological Surgery
DX: M43.16 Spondylolisthesis, lumbar region (principal); M47.816 Spondylosis without myelopathy or radiculopathy, lumbar region; M25.78 Osteophyte, vertebrae; Z98.1 Arthrodesis status
CPT/HCPCS: 72100

== ENCOUNTER → 2025-07-05 09:46 | Outpatient (CLI) | payer MEDICARE, OTHER, SELFPAY | PROVIDERS: PCP Family Medicine; Visit Provider Physician Assistant Medical | DX: J02.9 Acute pharyngitis, unspecified (principal) | CPT/HCPCS: 87070 ==

== ENCOUNTER → 2025-07-07 06:55 | Outpatient (CLI) | payer MEDICARE, OTHER, SELFPAY ==
[2025-07-11 06:36] LABS: PSA, Total 6.3 ng/mL (0.0-4.0)
== END ==
PROVIDERS: PCP Family Medicine; Referring Provider Urology; Visit Provider Urology
DX: R97.20 Elevated prostate specific antigen [PSA] (principal); N40.0 Benign prostatic hyperplasia without lower urinary tract symptoms
CPT/HCPCS: 36415; 84153; 84154